=== PATIENT | male | born 1965 | race Caucasian/White ===

== ENCOUNTER → 2017-06-21 | Outpatient (CLI) | payer OTHER ==
[~2017-06-21] MED LIST: ATEN25TA PO; AZOR 5-40MG PO; HYDR-713 PO; NOTE:; TRAM-453 PO; VENL150C56 PO; WLLSR/150 PO
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
== END | disposition home or self-care (01) ==
LOC: C.MRI 06:11
PROVIDERS: ATTEND Family Medicine
DX: M25.522 Pain in left elbow (principal); V89.2XXA Person injured in unspecified motor-vehicle accident, traffic, initial encounter